=== PATIENT | female | born 1980 | race Caucasian/White ===

== ENCOUNTER 2016-09-05 01:14 | Emergency (ER) | payer OTHER ==
[~2016-09-05 01:14] MED LIST: CIPRO500 MG PO; COLACE100 MG PO; FERROUS SULFAT325 M2 PO; LAC PO; MOTRIN800 MG PO; NOR10T PO; PRENATAL; VITAMIN C250 M1 PO
[2016-09-05 04:18] VITALS: BP 151/76
== END 2016-09-05 04:18 | disposition home or self-care (01) ==
LOC: ED 01:14
DX: S01.511A Laceration without foreign body of lip, initial encounter (principal); Y04.8XXA Assault by other bodily force, initial encounter; Y93.89 Activity, other specified; Y99.8 Other external cause status; Y92.89 Other specified places as the place of occurrence of the external cause
CPT/HCPCS: J2001